=== PATIENT | female | born 1965 | race African-American/Black ===

== ENCOUNTER 2018-03-24 18:09 | Emergency (ER) | payer MEDICAID ==
[~2018-03-24] VITALS: Ht 165.1 cm; Wt 71.0 kg
[2018-03-24] MEDS ORDERED: HYDROCODONE/ACETAMINOPHEN 5/325MG TABLET PO ONE (20:15)
[2018-03-24] MEDS ORDERED: ONDANSETRON 4MG ODT PO ONE (20:15)
[2018-03-24 21:28] VITALS: BP 109/68
== END 2018-03-24 21:30 | disposition home or self-care (01) ==
LOC: ER 18:09
DX: M25.461 Effusion, right knee (principal); R03.0 Elevated blood-pressure reading, without diagnosis of hypertension; Z98.890 Other specified postprocedural states; Z90.710 Acquired absence of both cervix and uterus; Z88.6 Allergy status to analgesic agent
CPT/HCPCS: 73562; 99283; Q0162; L1830

== ENCOUNTER 2018-06-04 21:08 | Emergency (ER) | payer MEDICAID ==
[~2018-06-04] VITALS: Ht 165.1 cm; Wt 69.0 kg
[2018-06-05 03:55] VITALS: BP 134/76
== END 2018-06-05 05:08 | disposition home or self-care (01) ==
LOC: ER 21:08
DX: J06.9 Acute upper respiratory infection, unspecified (principal); Z90.710 Acquired absence of both cervix and uterus; Z88.6 Allergy status to analgesic agent; Z98.890 Other specified postprocedural states
CPT/HCPCS: 71045; 87804; 99284

== ENCOUNTER 2018-09-23 21:09 | Emergency (ER) | payer MEDICAID ==
[~2018-09-23] VITALS: Ht 165.1 cm; Wt 73.0 kg
[2018-09-24] MEDS ORDERED: HYDROCODONE/ACETAMINOPHEN 5/325MG TABLET PO ONE (00:30)
[2018-09-24] MEDS ORDERED: ONDANSETRON 4MG ODT PO ONE (00:45)
[2018-09-24 01:48] VITALS: BP 130/90
== END 2018-09-24 01:48 | disposition home or self-care (01) ==
LOC: ER 21:24
DX: K08.89 Other specified disorders of teeth and supporting structures (principal); Z98.890 Other specified postprocedural states; Z90.710 Acquired absence of both cervix and uterus; Z88.6 Allergy status to analgesic agent
CPT/HCPCS: 99283; Q0162

== ENCOUNTER 2019-05-08 21:55 | Emergency (ER) | payer MEDICAID ==
[~2019-05-08] VITALS: Ht 165.1 cm; Wt 71.0 kg
[2019-05-08 22:09] VITALS: BP 116/76
[2019-05-08] MEDS ORDERED: ACETAMINOPHEN 325MG TABLET PO ONE (23:15)
[2019-05-08] MEDS ORDERED: ONDANSETRON 4MG ODT PO ONE (23:15)
== END 2019-05-08 23:38 | disposition home or self-care (01) ==
LOC: ER 21:55
DX: J10.1 Influenza due to other identified influenza virus with other respiratory manifestations (principal)
CPT/HCPCS: 87804; 99283; Q0162

== ENCOUNTER 2019-11-27 18:39 | Emergency (ER) | payer MEDICAID ==
[~2019-11-27] VITALS: Ht 165.1 cm; Wt 75.0 kg
[2019-11-27] MEDS ORDERED: ACETAMINOPHEN WITH CODEINE 300/30MG TABLET PO STA (18:57)
[2019-11-27 19:29] LABS: CLARITY URINE CLEAR (CLEAR); COLOR URINE YELLOW (YELLOW); KETONES URINE TRACE (NEGATIVE); LEUKOCYTE ESTERASE URINE NEGATIVE (NEGATIVE); NITRITE URINE NEGATIVE (NEGATIVE); OCCULT BLOOD URINE 1+ (NEGATIVE); PH URINE 5.5 (4.5-8.0); PROTEIN URINE NEGATIVE (NEGATIVE); SPECIFIC GRAVITY URINE 1.029 (1.005-1.030)
[2019-11-27 19:31] LABS: BASOPHILS % 0.6 % (0.0-2.0); HEMATOCRIT. 35.8 % (36.0-48.0); LYMPHOCYTES % 53.5 % (20.0-50.0); MEAN CORPUSCULAR HEMOGLOBIN 29.9 pg (28.0-32.0); MEAN CORPUSCULAR VOLUME 89.4 fL (81.0-99.0); MEAN PLATELET VOLUME 7.9 fl (7.4-10.4); MONOCYTES % 10.2 % (2.0-8.0); NEUTROPHILS % 34.7 % (40.0-76.0); PLATELET 255 x1000/uL (130-400); RED BLOOD CELL COUNT 4.01 mill/uL (4.2-5.4); RED CELL DISTRIBUTION WIDTH 13.6 % (11.6-14.6)
[2019-11-27 19:37] LABS: CHLORIDE 106 mEq/L (98-107)
[2019-11-27] MEDS ORDERED: MORPHINE SULFATE 10 MG/ML CPJ IM ONE (19:45)
[2019-11-27 20:28] VITALS: BP 128/86
== END 2019-11-27 20:40 | disposition home or self-care (01) ==
LOC: ER 18:39
DX: M54.31 Sciatica, right side (principal)
CPT/HCPCS: 36415; 80053; 81003; 81025; 85025; 96372; 99283; J2270

== ENCOUNTER 2021-03-25 06:48 | Emergency (ER) | payer OTHER, MEDICAID ==
[~2021-03-25] VITALS: Ht 165.1 cm; Wt 75.0 kg
[2021-03-25] MEDS ORDERED: DEXAMETHASONE 10 MG/ML VIAL IV ONE (08:30)
[2021-03-25] MEDS ORDERED: HYDROCODONE/ACETAMINOPHEN 5/325MG TABLET PO ONE (08:30)
[2021-03-25] MEDS ORDERED: LIDOCAINE 5% PATCH TOP SCH (09:00)
[2021-03-25 10:29] VITALS: BP 113/69
[2021-03-25] MEDS ORDERED: HYDR-4001 MT (10:46)
[2021-03-25] MEDS ORDERED: LIDO700A15 TP (10:46)
== END 2021-03-25 11:36 | disposition home or self-care (01) ==
LOC: ER 07:04
DX: R07.89 Other chest pain (principal); Z13.9 Encounter for screening, unspecified; Z88.6 Allergy status to analgesic agent; Z98.890 Other specified postprocedural states
CPT/HCPCS: 71101; 96374; 99283; J1100

== ENCOUNTER → 2023-12-05 | Emergency (ER) | payer MEDICAID, OTHER ==
[~2023-12-05] VITALS: Ht 165.1 cm; Wt 78.0 kg
[~2023-12-05] MED LIST: ACET-2708 MT; BACL-141 MT; HYDR-4001 MT; LIDO700A15 TP; METH4TAB95 MT
[2023-12-05 19:53] VITALS: O2SAT 98
[2023-12-05 19:59] VITALS: BP 131/69; PULSE 78; RESP 16; O2SAT 99
[2023-12-05 23:21] VITALS: TEMP 98.2
[2023-12-05] MEDS: ACETAMINOPHEN 325MG TABLET PO ONE (23:21)
== END ==
LOC: ER 19:47
DX: M25.512 Pain in left shoulder (principal); I49.9 Cardiac arrhythmia, unspecified; Z00.00 Encounter for general adult medical examination without abnormal findings; Z88.6 Allergy status to analgesic agent; Z98.890 Other specified postprocedural states; Z90.710 Acquired absence of both cervix and uterus
CPT/HCPCS: 73030; 93005; 99283; A4565

== ENCOUNTER 2024-10-10 19:27 | Emergency (ER) | payer MEDICAID ==
[~2024-10-10] VITALS: Ht 165.1 cm; Wt 73.0 kg
[~2024-10-10 19:27] MED LIST changes: +LIDO-53 TP; -LIDO700A15 TP
[2024-10-10 19:55] VITALS: O2SAT 99
[2024-10-10] MEDS: KETOROLAC 15MG/ML VIAL IM ONE (21:38)
[2024-10-10] MEDS: ACETAMINOPHEN 325MG TABLET PO ONE (21:38)
[2024-10-10] MEDS ORDERED: NAPR-679 MT (21:48)
[2024-10-10] MEDS ORDERED: ACET-2708 MT (21:48)
[2024-10-10 22:17] VITALS: BP 120/70; PULSE 66; RESP 15; TEMP 37.5; O2SAT 98
== END 2024-10-10 22:18 | disposition home or self-care (01) ==
LOC: ER 19:27
DX: S93.506A Unspecified sprain of unspecified lesser toe(s), initial encounter (principal); Z88.6 Allergy status to analgesic agent; Z79.899 Other long term (current) drug therapy; Z90.710 Acquired absence of both cervix and uterus; Z98.890 Other specified postprocedural states; W18.40XA Slipping, tripping and stumbling without falling, unspecified, initial encounter; Y93.89 Activity, other specified; Y92.89 Other specified places as the place of occurrence of the external cause; Y99.8 Other external cause status
CPT/HCPCS: 73630; 99283; Z7610; J1885

== ENCOUNTER 2025-01-13 23:18 | Emergency (ER) | payer MEDICAID ==
[~2025-01-13] VITALS: Ht 162.6 cm; Wt 77.1 kg
[~2025-01-13 23:18] MED LIST changes: +NAPR-679 MT
[2025-01-13 23:40] VITALS: O2SAT 99
[2025-01-14] MEDS: LIDOCAINE 5% PATCH TOP SCH (03:55)
[2025-01-14] MEDS: HYDROCODONE/ACETAMINOPHEN 5/325MG TABLET PO ONE (04:07)
[2025-01-14 04:55] VITALS: BP 139/78; PULSE 66; RESP 17; TEMP 36.8; O2SAT 99
== END 2025-01-14 05:00 | disposition home or self-care (01) ==
LOC: ER 23:18
DX: M17.11 Unilateral primary osteoarthritis, right knee (principal); Z79.1 Long term (current) use of non-steroidal anti-inflammatories (NSAID); Z88.6 Allergy status to analgesic agent; Z90.710 Acquired absence of both cervix and uterus
CPT/HCPCS: 29505; 73562; 99283